=== PATIENT | male | born 1965 | race Two or more races ===

== ENCOUNTER 2018-12-26 15:25 | Emergency (ER) | payer OTHER ==
[2018-12-26] MEDS ORDERED: Heparin Sodium 5,000 Units/ML Vial IVPUSH ONE (16:35)
[2018-12-26] MEDS: Sodium Chloride 0.9% 10 ML Syringe FLUSH PRN ×2 (16:35→17:13)
[2018-12-26] MEDS ORDERED: Aspirin 81 MG Tab.Chew PO ONE (16:35)
--- NOTE | 2018-12-26 16:43 | EDM.PDOC ---
ED HPI GENERAL MEDICAL PROBLEM - General Chief Complaint: Respiratory Problem Stated Complaint: SOB Time Seen by Provider: 12/26/18 15:29 Source of Information: Reports: Patient History Limitations: Reports: No Limitations - History of Present Illness INITIAL COMMENTS - FREE TEXT/NARRATIVE: The patient presents with shortness of breath. He was moving some square maco today and he got short of breath. He said yesterday he was doing the same thing and had no shortness of breath. He has no chest pain with it. He says he cannot walk across the room without being short of breath. He does smoke. He does not have hypertension according to him. He is not sure if he has hypercholesterolemia. He has no history of diabetes. He does have a family history of heart disease. He denies fever, chills, cough, abdominal pain, nausea or vomiting. Onset: Gradual Duration: Hour(s): Severity: Moderate Improves with: Reports: Immobilization Worsens with: Reports: Movement Context: Reports: Activity (Moving square maco) Associated Symptoms: Reports: Shortness of Breath. Denies: Chest Pain, Cough, Fever/Chills, Headaches, Nausea/Vomiting Chest Pain Score (Numeric/FACES): 1 - Related Data Allergies Allergy/AdvReac Type Severity Reaction Status Date / Time No Known Allergies Allergy Verified 12/26/18 15:34 Home Meds: Home Meds . [No Known Home Meds] 12/26/18 [History] Past Medical History Cardiovascular History: Reports: Hypertension Social & Family History - Tobacco Use Smoking Status *Q: Current Every Day Smoker Years of Tobacco use: 30 Packs/Tins Daily: 1 - Recreational Drug Use Recreational Drug Use: No ED ROS GENERAL - Review of Systems Review Of Systems: See Below Constitutional: Reports: No Symptoms HEENT: Reports: No Symptoms Respiratory: Reports: Shortness of Breath Cardiovascular: Reports: No Symptoms Endocrine: Reports: No Symptoms GI/Abdominal: Reports: No Symptoms : Reports: No Symptoms Musculoskeletal: Reports: No Symptoms ED EXAM, GENERAL - Physical Exam Exam: See Below Exam Limited By: No Limitations General Appearance: Alert, No Apparent Distress Ears: Normal External Exam Nose: Normal Inspection Head: Atraumatic, Normocephalic Neck: Normal Inspection Respiratory/Chest: No Respiratory Distress, Lungs Clear, Normal Breath Sounds Cardiovascular: Regular Rate, Rhythm, No Murmur, Other (Edema to the left leg) GI/Abdominal: Soft, Non-Tender, No Organomegaly, No Mass Back Exam: Normal Inspection Extremities: Other (Edema to the left leg) Neurological: Alert, Oriented, No Motor/Sensory Deficits EKG INTERPRETATION EKG Date: 12/26/18 Time: 15:38 Rhythm: Other (sinus tachycardia) Rate (Beats/Min): 109 [place]: RAD-Right [place] Deviation P-Wave: Present QRS: Normal ST-T: Depressed (ST depression slightly in the inferior leads) QT: Normal Course - Vital Signs Last Recorded V/S: Last Vital Signs Temp 98.5 F 12/26/18 15:34 Pulse 110 H 12/26/18 15:34 Resp 18 12/26/18 15:34 BP 141/89 H 12/26/18 15:34 Pulse Ox 94 L 12/26/18 16:32 - Orders/Labs/Meds Orders: Active Orders 24 hr Category Date Time Status Cardiac Monitoring [RC] . DIRECTED Care 12/26/18 15:50 Active EKG Documentation Completion [RC] ASDIRECTED Care 12/26/18 15:38 Active Oxygen Therapy [RC] PRN Care 12/26/18 15:50 Active Peripheral IV Care [RC] . DIRECTED Care 12/26/18 15:51 Active Chest 1V Frontal [CR] Stat Exams 12/26/18 15:51 Taken CBC W/O DIFF,HEMOGRAM [HEME] MOTH@0700 Lab 12/28/18 07:00 Ordered CBC W/O DIFF,HEMOGRAM [HEME] MOTH@0700 Lab 12/31/18 07:00 Ordered CBC W/O DIFF,HEMOGRAM [HEME] MOTH@0700 Lab 01/04/19 07:00 Ordered CBC W/O DIFF,HEMOGRAM [HEME] MOTH@0700 Lab 01/07/19 07:00 Ordered CBC W/O DIFF,HEMOGRAM [HEME] MOTH@0700 Lab 01/11/19 07:00 Ordered CBC W/O DIFF,HEMOGRAM [HEME] MOTH@0700 Lab 01/14/19 07:00 Ordered Heparin Sodium/D5W [Heparin 25,000 Units in D5W 500 ML] Med 12/26/18 16:45 Active 25,000 units in 500 ml IV TITRATE Sodium Chloride 0.9% [Normal Saline] 100 ml Med 12/26/18 17:00 Active IV ASDIRECTED Sodium Chloride 0.9% [Saline Flush] Med 12/26/18 15:50 Active 10 ml FLUSH ASDIRECTED PRN Peripheral IV Insertion Adult [OM.PC] Stat Oth 12/26/18 15:50 Ordered EKG 12 Lead [EK] Stat Ther 12/26/18 15:37 Ordered Medication Orders Heparin Sodium/Dextrose (Heparin 25,000 Units In D5w 500 Ml) 25,000 units in 500 mls @ 19.595 mls/hr IV TITRATE CORINA; Protocol Last Admin: 12/26/18 16:47 Dose: 8 units/kg/hr, 19.595 mls/hr Sodium Chloride (Normal Saline) 100 mls @ 75 mls/hr IV ASDIRECTED CORINA Last Admin: 12/26/18 17:14 Dose: 75 mls/hr Sodium Chloride (Saline Flush) 10 ml FLUSH ASDIRECTED PRN PRN Reason: Keep Vein Open Last Admin: 12/26/18 17:13 Dose: 10 ml Admin: 12/26/18 16:35 Dose: 10 ml Labs: Laboratory Tests 12/26/18 12/26/18 12/26/18 Range/Units 15:45 15:45 15:45 WBC 10.77 H (4.23-9.07) K/mm3 RBC 5.51 (4.63-6.08) M/mm3 Hgb 16.0 (13.7-17.5) gm/dl Hct 47.4 (40.1-51.0) % MCV 86.0 (79.0-92.2) fl MCH 29.0 (25.7-32.2) pg MCHC 33.8 (32.2-35.5) g/dl RDW Std Deviation 47.2 H (35.1-43.9) fL Plt Count 208 (163-337) K/mm3 MPV 8.9 L (9.4-12.3) fl Neut % (Auto) 86.4 H (34.0-67.9) % Lymph % (Auto) 7.3 L (21.8-53.1) % [place] % (Auto) 5.8 (5.3-12.2) % Eos % (Auto) 0.1 L (0.8-7.0) Baso % (Auto) 0.2 (0.1-1.2) % Neut # (Auto) 9.30 H (1.78-5.38) K/mm3 Lymph # (Auto) 0.79 L (1.32-3.57) K/mm3 [place] # (Auto) 0.63 (0.30-0.82) K/mm3 Eos # (Auto) 0.01 L (0.04-0.54) K/mm3 Baso # (Auto) 0.02 (0.01-0.08) K/mm3 Manual Slide Review Normal smear D-Dimer, Quantitative 16.12 H (0.19-0.50) mg/L Sodium 136 (136-145) mEq/L Potassium 3.4 L (3.5-5.1) mEq/L Chloride 102 (98-107) mEq/L Carbon Dioxide 22 (21-32) mEq/L Anion Gap 15.4 H (5-15) BUN 13 (7-18) mg/dL Creatinine 0.9 (0.7-1.3) mg/dL Est Cr Clr Drug Dosing 88.75 mL/min Estimated GFR (MDRD) > 60 (>60) mL/min BUN/Creatinine Ratio 14.4 (14-18) Glucose 157 H (74-106) mg/dL Calcium 9.1 (8.5-10.1) mg/dL Total Bilirubin 0.5 (0.2-1.0) mg/dL AST 58 H (15-37) U/L ALT 82 H (16-63) U/L Alkaline Phosphatase 97 (46-116) U/L Troponin I 1.155 H* (0.00-0.056) ng/mL NT-Pro-B Natriuret Pep (0-125) pg/mL Total Protein 7.7 (6.4-8.2) g/dl Albumin 3.5 (3.4-5.0) g/dl Globulin 4.2 gm/dL Albumin/Globulin Ratio 0.8 L (1-2) 12/26/18 Range/Units 15:45 WBC (4.23-9.07) K/mm3 RBC (4.63-6.08) M/mm3 Hgb (13.7-17.5) gm/dl Hct (40.1-51.0) % MCV (79.0-92.2) fl MCH (25.7-32.2) pg MCHC (32.2-35.5) g/dl RDW Std Deviation (35.1-43.9) fL Plt Count (163-337) K/mm3 MPV (9.4-12.3) fl Neut % (Auto) (34.0-67.9) % Lymph % (Auto) (21.8-53.1) % [place] % (Auto) (5.3-12.2) % Eos % (Auto) (0.8-7.0) Baso % (Auto) (0.1-1.2) % Neut # (Auto) (1.78-5.38) K/mm3 Lymph # (Auto) (1.32-3.57) K/mm3 [place] # (Auto) (0.30-0.82) K/mm3 Eos # (Auto) (0.04-0.54) K/mm3 Baso # (Auto) (0.01-0.08) K/mm3 Manual Slide Review D-Dimer, Quantitative (0.19-0.50) mg/L Sodium (136-145) mEq/L Potassium (3.5-5.1) mEq/L Chloride (98-107) mEq/L Carbon Dioxide (21-32) mEq/L Anion Gap (5-15) BUN (7-18) mg/dL Creatinine (0.7-1.3) mg/dL Est Cr Clr Drug Dosing mL/min Estimated GFR (MDRD) (>60) mL/min BUN/Creatinine Ratio (14-18) Glucose (74-106) mg/dL Calcium (8.5-10.1) mg/dL Total Bilirubin (0.2-1.0) mg/dL AST (15-37) U/L ALT (16-63) U/L Alkaline Phosphatase (46-116) U/L Troponin I (0.00-0.056) ng/mL NT-Pro-B Natriuret Pep 187 H (0-125) pg/mL Total Protein (6.4-8.2) g/dl Albumin (3.4-5.0) g/dl Globulin gm/dL Albumin/Globulin Ratio (1-2) Meds: Medications Generic Name Dose Route Start Last Admin Trade Name Freq PRN Reason Stop Dose Admin Heparin Sodium/Dextrose 25,000 units in 500 mls @ 19.595 mls/hr 12/26/18 16: 45 12/26/18 16:47 Heparin 25,000 Units In D5w 500 Ml IV 8 units/kg/hr TITRATE CORINA 19.595 mls/hr Administration Protocol 8 UNITS/KG/HR Sodium Chloride 100 mls @ 75 mls/hr 12/26/18 17:00 12/26/18 17:14 Normal Saline IV 75 mls/hr ASDIRECTED CORINA Administration Sodium Chloride 10 ml 12/26/18 15:50 12/26/18 17:13 Saline Flush FLUSH 10 ml ASDIRECTED PRN Administration Keep Vein Open Discontinued Medications Generic Name Dose Route Start Last Admin Trade Name Emma PRN Reason Stop Dose Admin Aspirin 324 mg 12/26/18 16:35 12/26/18 16:46 Aspirin PO 12/26/18 16:36 324 mg ONETIME ONE Administration Heparin Sodium (Porcine) 5,000 units 12/26/18 16:35 12/26/18 16:46 Heparin Sodium IVPUSH 12/26/18 16:36 5,000 units ONETIME ONE Administration Iopamidol 100 ml 12/26/18 16:52 12/26/18 17:13 Isovue-370 (76%) IVPUSH 12/26/18 16:53 100 ml ONETIME ONE Administration - Re-Assessments/Exams Free Text/Narrative Re-Assessment/Exam: 12/26/18 16:44 I ordered an IV saline lock, oxygen PRN, EKG, CXR, labs and aspirin. His EKG shows a sinus tachycardia with slight ST elevation in the inferior leads. His CXR shows no infiltrates. 12/26/18 16:49 His WBC was slightly elevated at 10.77. His D-dimer is 16.62. His K is low at 3.4. His glucose is elevated at 157. His AST is elevated at 58. His ALT is elevated at 82. His troponin is elevated at 1.155. His BNP is elevated slightly at 187. I have ordered a heparin bolus and drip. I have also ordered a CT angio of his chest to look for PE. He has swelling in his left leg for a few months. 12/26/18 17:[address] shows extensive pulmonary emboli with early right heart strain. Incidental cyst within the left kidney. The patient needs to be admitted and go to [place] where they have an interventional radiologist. He may need a procedure done. 12/26/18 18:[address] Sharif at [facility] in [place] and he accepted the patient. Departure - Departure Time of Disposition: 18:25 Disposition: DC/Tfer to Acute Hospital 02 Condition: Serious Clinical Impression: Pulmonary embolism, bilateral, Elevated troponin - Discharge Information Referrals: PCP,None [Primary Care Provider] - Forms: ED Department Discharge - My Orders Last 24 Hours: My Active Orders 12/26/18 15:37 EKG 12 Lead [EK] Stat 12/26/18 15:38 EKG Documentation Completion [RC] ASDIRECTED 12/26/18 15:50 Cardiac Monitoring [RC] . DIRECTED Oxygen Therapy [RC] PRN Sodium Chloride 0.9% [Saline Flush] 10 ml FLUSH ASDIRECTED PRN Peripheral IV Insertion Adult [OM.PC] Stat 12/26/18 15:51 Peripheral IV Care [RC] . DIRECTED Chest 1V Frontal [CR] Stat 12/26/18 16:45 Heparin Sodium/D5W [Heparin 25,000 Units in D5W 500 ML] 25,000 units in 500 ml IV TITRATE 12/26/18 17:00 Sodium Chloride 0.9% [Normal Saline] 100 ml IV ASDIRECTED 12/28/18 07:00 CBC W/O DIFF,HEMOGRAM [HEME] MOTH@0700 12/31/18 07:00 CBC W/O DIFF,HEMOGRAM [HEME] MOTH@0700 01/04/19 07:00 CBC W/O DIFF,HEMOGRAM [HEME] MOTH@0700 01/07/19 07:00 CBC W/O DIFF,HEMOGRAM [HEME] MOTH@0700 01/11/19 07:00 CBC W/O DIFF,HEMOGRAM [HEME] MOTH@0700 01/14/19 07:00 CBC W/O DIFF,HEMOGRAM [HEME] MOTH@0700 - Assessment/Plan Last 24 Hours: My Active Orders 12/26/18 15:37 EKG 12 Lead [EK] Stat 12/26/18 15:38 EKG Documentation Completion [RC] ASDIRECTED 12/26/18 15:50 Cardiac Monitoring [RC] . DIRECTED Oxygen Therapy [RC] PRN Sodium Chloride 0.9% [Saline Flush] 10 ml FLUSH ASDIRECTED PRN Peripheral IV Insertion Adult [OM.PC] Stat 12/26/18 15:51 Peripheral IV Care [RC] . DIRECTED Chest 1V Frontal [CR] Stat 12/26/18 16:45 Heparin Sodium/D5W [Heparin 25,000 Units in D5W 500 ML] 25,000 units in 500 ml IV TITRATE 12/26/18 17:00 Sodium Chloride 0.9% [Normal Saline] 100 ml IV ASDIRECTED 12/28/18 07:00 CBC W/O DIFF,HEMOGRAM [HEME] MOTH@0700 12/31/18 07:00 CBC W/O DIFF,HEMOGRAM [HEME] MOTH@0700 01/04/19 07:00 CBC W/O DIFF,HEMOGRAM [HEME] MOTH@0700 01/07/19 07:00 CBC W/O DIFF,HEMOGRAM [HEME] MOTH@0700 01/11/19 07:00 CBC W/O DIFF,HEMOGRAM [HEME] MOTH@0700 01/14/19 07:00 CBC W/O DIFF,HEMOGRAM [HEME] MOTH@07
[2018-12-26] MEDS ORDERED: Heparin Sodium/D5W 25,000 UNITS/500 ML BAG IV SCH (16:45)
[2018-12-26] MEDS ORDERED: Iopamidol 755 Mg/ML 100 ML Bottle IVPUSH ONE (16:52)
[2018-12-26] MEDS ORDERED: Sodium Chloride 0.9% 100 ML IV SCH (17:00)
--- NOTE | 2018-12-26 17:37 | CT ---
CT chest Technique: Multiple axial sections were obtained from above the lung apices inferiorly through the lung bases. Intravenous contrast was utilized. Study performed as a pulmonary aneurysm protocol. Findings: Extensive pulmonary emboli are seen within the distal right and left main pulmonary arteries with clot extending into the segmental branches of the right and left lower lungs as well as several subsegmental pulmonary emboli within the right and left lower lungs. Additional clot is seen within the segmental and subsegmental branches of the left upper lung and subsegmental branches within the right upper lung. Interventricular septum is straight which is suggestive of early right heart strain. Mediastinum and hilar regions show no adenopathy. No pericardial thickening is seen. Visualized upper abdominal structures shows a cyst within the left kidney measuring 2.7 cm. Lungs are clear. No acute parenchymal changes seen. No pleural effusions are identified. Scattered degenerative change noted within the spine on bone window settings. No acute osseous abnormality is appreciated. Impression: 1. Extensive pulmonary emboli with early right heart strain. 2. Incidental cyst within the left kidney. Diagnostic code #5
--- NOTE | 2018-12-27 10:57 | CR ---
Chest: Portable view of the chest was obtained. Comparison: No previous chest x-ray. Heart size and mediastinum are within normal limits for portable technique. Lungs are clear. Bony structures are grossly intact. Impression: 1. Nothing acute is appreciated on portable chest x-ray. Diagnostic code #1
== END 2018-12-26 19:10 ==
LOC: JD.ED 15:25
DX: I26.99 Other pulmonary embolism without acute cor pulmonale (principal); R79.89 Other specified abnormal findings of blood chemistry; I10 Essential (primary) hypertension; F17.210 Nicotine dependence, cigarettes, uncomplicated
CPT/HCPCS: 36415; 71045; 71275; 80053; 83880; 84484; 85025; 85379; 93005; 96365; 96366; 99285; A9270; J1644; J7030; Q9967; 93010; 99284

== ENCOUNTER 2019-01-14 13:41 | Emergency (ER) | payer OTHER ==
--- NOTE | 2019-01-14 14:05 | EDM.PDOC ---
ED HPI GENERAL MEDICAL PROBLEM - General Chief Complaint: Cardiovascular Problem Stated Complaint: [facility] Time Seen by Provider: 01/14/19 14:04 - History of Present Illness INITIAL COMMENTS - FREE TEXT/NARRATIVE: 53-year-old male brought in by [facility] with numbness and tingling in both arms. Patient was advised to come to the emergency room after talking to a phone nurse. Patient had developed numbness and tingling in both hands after using his Nicorette gum every 2 hours 4 milligrams he drank 5 or 6 strong cups of coffee and he was still craving tobacco so he used some oral tobacco this is when things got rough. Of concern is a patient several weeks ago was diagnosed with extensive bilateral pulmonary embolisms. Patient was started on heparin initially started on Xaralto. And was discharged. His troponin was elevated at that time at 1.[address] was suggestive of right heart strain most likely due to the PEs. He was transferred at that time to [facility] in [place]. - Related Data Allergies Allergy/AdvReac Type Severity Reaction Status Date / Time No Known Allergies Allergy Verified 01/14/19 13:46 Home Meds: Home Meds Nicotine Polacrilex [Nicotine Gum] 4 mg PO Q2H PRN 01/14/19 [History] Rivaroxaban [Xarelto] 15 mg PO BID 01/14/19 [History] Past Medical History Cardiovascular History: Reports: Hypertension ED ROS GENERAL - Review of Systems Review Of Systems: See Below Constitutional: Reports: No Symptoms HEENT: Reports: No Symptoms Respiratory: Reports: No Symptoms Cardiovascular: Reports: No Symptoms Endocrine: Reports: No Symptoms GI/Abdominal: Reports: No Symptoms : Reports: No Symptoms Musculoskeletal: Reports: Other (Distal arm numbness and tingling transient) Skin: Reports: No Symptoms Neurological: Reports: Numbness, Tingling Psychiatric: Reports: Anxiety Hematologic/Lymphatic: Reports: No Symptoms Immunologic: Reports: No Symptoms ED EXAM, GENERAL - Physical Exam Exam: See Below Exam Limited By: No Limitations General Appearance: Alert, No Apparent Distress Head: Atraumatic, Normocephalic Neck: Normal Inspection, Supple, Non-Tender, Full Range of Motion Respiratory/Chest: No Respiratory Distress, Lungs Clear, Normal Breath Sounds Cardiovascular: Regular Rate, Rhythm, No Edema, No Murmur GI/Abdominal: Normal Bowel Sounds, Soft, Non-Tender Back Exam: Normal Inspection. No: CVA Tenderness (L), CVA Tenderness (R), Muscle Spasm, Paraspinal Tenderness, Vertebral Tenderness Extremities: Normal Inspection, No Pedal Edema Neurological: Alert, Oriented, Normal Cognition EKG INTERPRETATION EKG Date: 01/14/19 Rhythm: NSR Rate (Beats/Min): 84 [place]: Normal P-Wave: Present QRS: Normal (His rightward axis seen on his last EKG of December 26 of this year has for the most part resolved tachycardia resolved. Minimal changes test subtle ST T-wave changes) ST-T: Other (Subtle ST elevation in V2 V3 otherwise no abnormal ST-T wave changes he has inverted T waves in V2 and V3) QT: Normal Comparison: Change From Previous EKG (rate normal compared to tachycardia compared to December 26 of this year. Subtle nonspecific ST changes in V2 V3 more prominent probably rate related he had inverted T waves in lead V2 uncertain about the V3 area and otherwise no significant changes) EKG Interpretation Comments: Borderline EKG Course - Vital Signs Last Recorded V/S: Last Vital Signs Temp 38.0 C 01/14/19 13:45 Pulse 86 01/14/19 13:45 Resp 12 01/14/19 13:45 BP 150/82 H 01/14/19 13:45 Pulse Ox 97 01/14/19 13:45 - Orders/Labs/Meds Orders: Active Orders 24 hr Category Date Time Status Influenza Vaccine Charge [RC] .DISCHARGE Care 01/14/19 14:06 Active Labs: Laboratory Tests 01/14/19 01/14/19 Range/Units 14:40 14:40 WBC 9.12 H (4.23-9.07) K/mm3 RBC 5.26 (4.63-6.08) M/mm3 Hgb 15.3 (13.7-17.5) gm/dl Hct 45.5 (40.1-51.0) % MCV 86.5 (79.0-92.2) fl MCH 29.1 (25.7-32.2) pg MCHC 33.6 (32.2-35.5) g/dl RDW Std Deviation 45.6 H (35.1-43.9) fL Plt Count 324 D (163-337) K/mm3 MPV 8.4 L (9.4-12.3) fl Neutrophils % (Manual) 72 H (40-60) % Band Neutrophils % 0 (0-10) % Lymphocytes % (Manual) 18 L (20-40) % Atypical Lymphs % 0 % Monocytes % (Manual) 9 (2-10) % Eosinophils % (Manual) 1 (0.8-7.0) % Basophils % (Manual) 0 L (0.2-1.2) Platelet Estimate Adequate RBC Morph Comment Normal Sodium 137 (136-145) mEq/L Potassium 3.5 (3.5-5.1) mEq/L Chloride 105 (98-107) mEq/L Carbon Dioxide 23 (21-32) mEq/L Anion Gap 12.5 (5-15) BUN 19 H (7-18) mg/dL Creatinine 1.0 (0.7-1.3) mg/dL Est Cr Clr Drug Dosing 79.87 mL/min Estimated GFR (MDRD) > 60 (>60) mL/min BUN/Creatinine Ratio 19.0 H (14-18) Glucose 106 (74-106) mg/dL Calcium 8.8 (8.5-10.1) mg/dL Total Bilirubin 0.3 (0.2-1.0) mg/dL AST 18 (15-37) U/L ALT 38 (16-63) U/L Alkaline Phosphatase 86 (46-116) U/L Troponin I 0.019 (0.00-0.056) ng/mL Total Protein 7.5 (6.4-8.2) g/dl Albumin 3.3 L (3.4-5.0) g/dl Globulin 4.2 gm/dL Albumin/Globulin Ratio 0.8 L (1-2) Meds: Medications Discontinued Medications Generic Name Dose Route Start Last Admin Trade Name Freq PRN Reason Stop Dose Admin Influenza Virus Vaccine 1 each 01/14/19 14:06 01/14/19 16:14 Pharmacy To Dose - Influenza Vaccine IM 01/14/19 14:07 Not Given ONETIME ONE Influenza Virus Vaccine 60 mcg 01/14/19 14:15 01/14/19 16:14 Fluzone Quad [id number] Syringe IM 01/14/19 14:16 60 mcg .ONCE ONE Administration Potassium Chloride 40 meq 01/14/19 15:58 01/14/19 16:12 Klor-Con M20 PO 01/14/19 15:59 40 meq ONETIME ONE Administration - Re-Assessments/Exams Free Text/Narrative Re-Assessment/Exam: 01/14/19 16:27 Patient was basically symptom-free when he arrived here has remained symptom- free while here. Labs show a troponin that was abnormal at 1.155 December 26 of this year when he had PE diagnosed this is normalized to 0.018 he has a mild hypokalemia we'll give him 40 mEq of potassium he is not on any medication that can make this worse. The patient will continue the Xaralto. Patient needs to avoid caffeine and nicotine-containing products to the extent that he's been using them however it is good that the patient has not smoked since his PE was diagnosed. Departure - Departure Time of Disposition: 16:30 Disposition: Home, Self-Care 01 Clinical Impression: Anxiety reaction Referrals: Arlene Coleman MD [Primary Care Provider] - Forms: ED Department Discharge Additional Instructions: Return to the emergency room with any questions problems worsening symptoms. It appears a lot of her symptoms were related to excessive use of caffeine and nicotine-containing products decrease the nicotine and decrease the caffeine. Follow-up with your regular doctors as scheduled. - My Orders Last 24 Hours: My Active Orders 01/14/19 14:06 Influenza Vaccine Charge [RC] .DISCHARGE - Assessment/Plan Last 24 Hours: My Active Orders 01/14/19 14:06 Influenza Vaccine Charge [RC] .DISCHARGE
[2019-01-14] MEDS ORDERED: FLU Vacc QS2019-20(6MOS+)/PF 60 MCG/0.5 ML SYRINGE IM ONE (14:15)
--- NOTE | 2019-01-14 15:02 | CR ---
Chest: Portable view of the chest was obtained. Comparison: Prior chest x-ray of 12/26/18. Heart size is slightly prominent but accentuated from portable technique. Lungs are clear with no acute parenchymal change. Bony structures are grossly intact. Impression: 1. Nothing acute is appreciated on portable chest x-ray. Diagnostic code #1
[2019-01-14] MEDS ORDERED: Potassium Chloride 20 MEQ Tab.ER PO ONE (15:58)
== END 2019-01-14 16:43 | disposition home or self-care (01) ==
LOC: JD.ED 13:41 → SUPCPDRO 13:41 → JD.ED 16:43
DX: F41.1 Generalized anxiety disorder (principal); I10 Essential (primary) hypertension
CPT/HCPCS: 36415; 71045; 80053; 84484; 85007; 85027; 90471; 90686; 99285; A9270; 93010; 99283; G0008

== ENCOUNTER 2019-03-30 12:24 | Emergency (ER) | payer OTHER ==
[2019-03-30] MEDS ORDERED: Sodium Chloride 0.9% 10 ML Syringe FLUSH PRN (12:54)
--- NOTE | 2019-03-30 13:04 | EDM.PDOC ---
ED HPI GENERAL MEDICAL PROBLEM - General Chief Complaint: Cardiovascular Problem Stated Complaint: SOB Time Seen by Provider: 03/30/19 12:39 Source of Information: Reports: Patient History Limitations: Reports: No Limitations - History of Present Illness INITIAL COMMENTS - FREE TEXT/NARRATIVE: Patient is a 55-year-old male who presents with complaints of shortness of breath that started last night. He states he did have some chest pain with it last evening, however that resolved and he has had none since. He states he did feel anxious at the time. 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 He has been on Xarelto since that time and has been told that his clots have since resolved. He denies ever missing a dose of Xarelto. He did have an elevated troponin when he had his PEs which was attributed to right heart strain. Patient states that he had similar symptoms of shortness of breath and anxiety in December when he took too much of his Nicorette medication with caffeine. He states his last dose of Nicorette was 2 days ago. He did have caffeine yesterday in the form of several cups of coffee however he has not had any caffeine yet today. He has quit smoking since he had his PEs. Denies any orthopnea, states he actually feels it is easier to breathe when he lies down. He does state that he has continued to have some degree of shortness of breath since he had his PEs, however it has improved substantially since he was discharged from the hospital. He reports that he walks 20 minutes daily and becomes slightly winded but is able to tolerate it. He has no history of hypertension and states that his blood pressures normally run in the 120s systolic. He is on no other medications other than his Xarelto. He is currently scheduled to have a stress test the first week of March which was ordered by his mattress maker. He denies any recent respiratory illnesses, fever or cough, as well as any nausea vomiting or diarrhea. Patient does state that he has recently began to develop peripheral edema and was told to use compression stockings as needed. Chest Pain Score (Numeric/FACES): 0 - Related Data Allergies Allergy/AdvReac Type Severity Reaction Status Date / Time No Known Allergies Allergy Verified 03/30/19 12:41 Home Meds: Home Meds Nicotine Polacrilex [Nicotine Gum] 4 mg PO Q2H PRN 01/14/19 [History] Rivaroxaban [Xarelto] 20 mg PO DAILY 01/14/19 [History] Past Medical History HEENT History: Reports: Impaired Vision Other HEENT History: wears eyeglasses. Cardiovascular History: Reports: Hypertension, Other (See Below) Other Cardiovascular History: has been told he had a heart attack - dec 26 Respiratory History: Reports: PE, Pneumonia, Recurrent Psychiatric History: Reports: Addiction Other Psychiatric History: smoking Hematologic History: Reports: Anticoagulation Therapy Dermatologic History: Reports: Psoriasis - Infectious Disease History Infectious Disease History: Reports: Chicken Pox Social & Family History - Tobacco Use Smoking Status *Q: Former Smoker Used Tobacco, but Quit: Yes Month/Year Tobacco Last Used: recently quit this month - using niccotene - Caffeine Use Caffeine Use: Reports: None ED ROS GENERAL - Review of Systems Review Of Systems: See Below Constitutional: Reports: No Symptoms HEENT: Reports: No Symptoms Respiratory: Reports: Shortness of Breath. Denies: Wheezing, Cough Cardiovascular: Reports: Chest Pain. Denies: Dyspnea on Exertion, Lightheadedness, Orthopnea, Palpitations Endocrine: Reports: No Symptoms GI/Abdominal: Reports: No Symptoms : Reports: No Symptoms Musculoskeletal: Reports: No Symptoms Skin: Reports: No Symptoms Neurological: Reports: No Symptoms Psychiatric: Reports: No Symptoms Hematologic/Lymphatic: Reports: No Symptoms Immunologic: Reports: No Symptoms ED EXAM, GENERAL - Physical Exam Exam: See Below Exam Limited By: No Limitations General Appearance: Alert, WD/WN, No Apparent Distress Head: Atraumatic, Normocephalic Respiratory/Chest: No Respiratory Distress, Lungs Clear, Normal Breath Sounds, No Accessory Muscle Use, Chest Non-Tender Cardiovascular: Normal Peripheral Pulses, Regular Rate, Rhythm, No Edema, No Gallop, No JVD, No Murmur, No Rub GI/Abdominal: Normal Bowel Sounds, Soft, Non-Tender Extremities: Normal Inspection, Pedal Edema (Trace) Neurological: Alert, Oriented, Normal Cognition Psychiatric: Normal Affect, Normal Mood Skin Exam: Warm, Dry, Intact, Normal Color, No Rash Lymphatic: No Adenopathy EKG INTERPRETATION EKG Date: 03/30/19 Time: 12:41 Rhythm: NSR Rate (Beats/Min): 81 [place]: Normal P-Wave: Present QRS: Normal ST-T: Normal QT: Normal EKG Interpretation Comments: Nonspecific intraventricular conduction delay Early R-wave transition with poor R-wave progression Consider bi-atrial hypertrophy Course - Vital Signs Last Recorded V/S: Last Vital Signs Temp 98.7 F 03/30/19 12:36 Pulse 89 03/30/19 12:36 Resp 18 03/30/19 12:36 BP 160/88 H 03/30/19 12:36 Pulse Ox 95 03/30/19 12:36 - Orders/Labs/Meds Orders: Active Orders 24 hr Category Date Time Status EKG Documentation Completion [RC] ASDIRECTED Care 03/30/19 12:53 Active Peripheral IV Care [RC] . DIRECTED Care 03/30/19 12:54 Active Chest 2V [CR] Stat Exams 03/30/19 12:54 Taken Peripheral IV Insertion Adult [OM.PC] Stat Oth 03/30/19 12:54 Ordered EKG 12 Lead [EK] Stat Ther 03/30/19 12:53 Ordered Labs: Laboratory Tests 03/30/19 03/30/19 03/30/19 Range/Units 12:50 12:50 12:50 WBC 9.01 (4.23-9.07) K/mm3 RBC 5.46 (4.63-6.08) M/mm3 Hgb 15.5 (13.7-17.5) gm/dl Hct 46.5 (40.1-51.0) % MCV 85.2 (79.0-92.2) fl MCH 28.4 (25.7-32.2) pg MCHC 33.3 (32.2-35.5) g/dl RDW Std Deviation 44.4 H (35.1-43.9) fL Plt Count 329 (163-337) K/mm3 MPV 8.7 L (9.4-12.3) fl Neut % (Auto) 78.8 H (34.0-67.9) % Lymph % (Auto) 13.4 L (21.8-53.1) % [place] % (Auto) 7.0 (5.3-12.2) % Eos % (Auto) 0.3 L (0.8-7.0) Baso % (Auto) 0.3 (0.1-1.2) % Neut # (Auto) 7.09 H (1.78-5.38) K/mm3 Lymph # (Auto) 1.21 L (1.32-3.57) K/mm3 [place] # (Auto) 0.63 (0.30-0.82) K/mm3 Eos # (Auto) 0.03 L (0.04-0.54) K/mm3 Baso # (Auto) 0.03 (0.01-0.08) K/mm3 D-Dimer, Quantitative 0.26 (0.19-0.50) mg/L Sodium 138 (136-145) mEq/L Potassium 3.9 (3.5-5.1) mEq/L Chloride 103 (98-107) mEq/L Carbon Dioxide 24 (21-32) mEq/L Anion Gap 14.9 (5-15) BUN 14 (7-18) mg/dL Creatinine 0.8 (0.7-1.3) mg/dL Est Cr Clr Drug Dosing 98.69 mL/min Estimated GFR (MDRD) > 60 (>60) mL/min BUN/Creatinine Ratio 17.5 (14-18) Glucose 143 H (74-106) mg/dL Calcium 8.9 (8.5-10.1) mg/dL Total Bilirubin 0.3 (0.2-1.0) mg/dL AST 13 L (15-37) U/L ALT 34 (16-63) U/L Alkaline Phosphatase 94 (46-116) U/L Troponin I < 0.017 (0.00-0.056) ng/mL NT-Pro-B Natriuret Pep (0-125) pg/mL Total Protein 8.0 (6.4-8.2) g/dl Albumin 3.4 (3.4-5.0) g/dl Globulin 4.6 gm/dL Albumin/Globulin Ratio 0.7 L (1-2) 03/30/19 Range/Units 12:50 WBC (4.23-9.07) K/mm3 RBC (4.63-6.08) M/mm3 Hgb (13.7-17.5) gm/dl Hct (40.1-51.0) % MCV (79.0-92.2) fl MCH (25.7-32.2) pg MCHC (32.2-35.5) g/dl RDW Std Deviation (35.1-43.9) fL Plt Count (163-337) K/mm3 MPV (9.4-12.3) fl Neut % (Auto) (34.0-67.9) % Lymph % (Auto) (21.8-53.1) % [place] % (Auto) (5.3-12.2) % Eos % (Auto) (0.8-7.0) Baso % (Auto) (0.1-1.2) % Neut # (Auto) (1.78-5.38) K/mm3 Lymph # (Auto) (1.32-3.57) K/mm3 [place] # (Auto) (0.30-0.82) K/mm3 Eos # (Auto) (0.04-0.54) K/mm3 Baso # (Auto) (0.01-0.08) K/mm3 D-Dimer, Quantitative (0.19-0.50) mg/L Sodium (136-145) mEq/L Potassium (3.5-5.1) mEq/L Chloride (98-107) mEq/L Carbon Dioxide (21-32) mEq/L Anion Gap (5-15) BUN (7-18) mg/dL Creatinine (0.7-1.3) mg/dL Est Cr Clr Drug Dosing mL/min Estimated GFR (MDRD) (>60) mL/min BUN/Creatinine Ratio (14-18) Glucose (74-106) mg/dL Calcium (8.5-10.1) mg/dL Total Bilirubin (0.2-1.0) mg/dL AST (15-37) U/L ALT (16-63) U/L Alkaline Phosphatase (46-116) U/L Troponin I (0.00-0.056) ng/mL NT-Pro-B Natriuret Pep 39 (0-125) pg/mL Total Protein (6.4-8.2) g/dl Albumin (3.4-5.0) g/dl Globulin gm/dL Albumin/Globulin Ratio (1-2) Meds: Medications Discontinued Medications Generic Name Dose Route Start Last Admin Trade Name Freq PRN Reason Stop Dose Admin Sodium Chloride 10 ml 03/30/19 12:54 03/30/19 12:56 Saline Flush FLUSH 10 ml ASDIRECTED PRN Administration Keep Vein Open - Re-Assessments/Exams Free Text/Narrative Re-Assessment/Exam: Patient is not having chest pain at this time, however he does continue to have shortness of breath. A cardiac and respiratory workup to include a CBC, CMP, troponin, d-dimer, EKG, pro-BNP and two-view chest x-ray. 03/30/19 14:20 Patient's hematology was grossly unremarkable. Troponin was normal. D-dimer was negative. BNP was normal. WBCs were normal. There is nothing acute seen on his two-view chest x-ray. EKG was negative for any acute ischemia. Patient states that he does feel mildly short of breath still, however no more than he has on the normal daily basis since recovering from his PEs. He is oxygenating 98% on room air. He is not tachycardic and his blood pressure is normal. He' ll be discharged home to follow-up with his primary care provider. He does have a stress test scheduled for this Friday, I did recommend that he contact his primary care to let her know that he was seen in the ER for shortness of breath and see if she has any recommendations for changing any of his tests. He verbalizes understanding of this plan. Discharge instructions as noted. Departure - Departure Time of Disposition: 14:20 Disposition: Home, Self-Care 01 Condition: Good Clinical Impression: Shortness of breath Instructions: Shortness of Breath, Adult, [id number] Referrals: Andra Hernandez, CLAIM CLERK [Primary Care Provider] - Forms: ED Department Discharge Additional Instructions: You were seen in the emergency Department today for increased shortness of breath that began last night. Your workup included lab tests, and EKG, and a chest x-ray. All of your tests came back normal. There are no signs that you have had a heart attack. There are no signs that there are any blood clots. And there are no signs that you have heart failure. Your vital signs were normal while in the ER. There is no sign that she were not getting enough oxygen or that your blood pressures are too high. As we discussed, anxiety may be contributing to your feelings of shortness of breath. We do recommend that you refrain from caffeine use and limit your nicotine intake as much as possible. It is recommended that you contact your primary care provider to let her know that you were seen in the ER and see if she feels that there should be any changes to your upcoming tests or procedures. If you should experience any new worsening or concerning symptoms, please not hesitate to return to the emergency department as needed. Sepsis Event Note - Evaluation Sepsis Screening Result: No Definite Risk - Focused Exam Vital Signs: Vital Signs Temp Pulse Resp BP Pulse Ox 03/30/19 12:36 98.7 F 89 18 160/88 H 95 Date Exam was Performed: 03/30/19 Time Exam was Performed: 18:15 - My Orders Last 24 Hours: My Active Orders 03/30/19 12:53 EKG Documentation Completion [RC] ASDIRECTED EKG 12 Lead [EK] Stat 03/30/19 12:54 Peripheral IV Care [RC] . DIRECTED Chest 2V [CR] Stat Peripheral IV Insertion Adult [OM.PC] Stat - Assessment/Plan Last 24 Hours: My Active Orders 03/30/19 12:53 EKG Documentation Completion [RC] ASDIRECTED EKG 12 Lead [EK] Stat 03/30/19 12:54 Peripheral IV Care [RC] . DIRECTED Chest 2V [CR] Stat Peripheral IV Insertion Adult [OM.PC] Stat
--- NOTE | 2019-04-01 07:24 | CR ---
Chest: Two views of the chest are obtained. Comparison: Prior chest x-ray of 01/14/19. Heart size is slightly enlarged. Upper mediastinum is normal. Lungs are clear with no acute parenchymal change. Minimal scarring is seen within the left base. Mild degenerative change is scattered within the spine. Impression: 1. Findings as noted above. 2. Nothing acute is appreciated. Diagnostic code #2 This report was dictated in [place] Standard Time
== END 2019-03-30 14:30 | disposition home or self-care (01) ==
LOC: JD.ED 12:24
DX: R06.02 Shortness of breath (principal); I10 Essential (primary) hypertension; Z87.891 Personal history of nicotine dependence
CPT/HCPCS: 36415; 71046; 71046-26; 80053; 83880; 84484; 85025; 85379; 93005; 99285-25